=== PATIENT | male | born 2005 | race Hispanic/Latino ===

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

== ENCOUNTER 2024-02-27 01:32 | Emergency (ER) | payer MEDICAID ==
[~2024-02-27] VITALS: Ht 162.6 cm; Wt 72.6 kg
[2024-02-27] MEDS: ONDANSETRON 4MG INJ IVP ONE (02:00)
[2024-02-27] MEDS: LACTATED RINGERS 1000ML 1,000 ML IV ONE (02:00)
[2024-02-27] MEDS: MORPHINE 4 MG SYG IVP ONE (02:00)
[2024-02-27 02:04] LABS: BASOPHILS # (AUTO) 0.04 K/uL (0.00-0.20); BASOPHILS % (AUTO) 0.3 % (0.0-5.0); EOSINOPHILS # (AUTO) 0.32 K/uL (0.00-0.70); EOSINOPHILS % (AUTO) 2.4 % (0.0-8.0); HEMATOCRIT 45.3 % (42-54); IMMATURE GRANULOCYTE ABSOLUTE 0.05 K/uL (0-1); LYMPHOCYTES # (AUTO) 5.1 K/uL (1.0-4.8); LYMPHOCYTES % (AUTO) 38.1 % (21.0-51.0); MEAN CORPUSCULAR HEMOGLOBIN 32.4 pg (27.0-33.0); MEAN CORPUSCULAR HGB CONC 36.6 g/dL (32.0-36.0); MEAN CORPUSCULAR VOLUME 88.5 fL (80-100); MONOCYTES # (AUTO) 0.8 K/uL (0.1-1.0); MONOCYTES % (AUTO) 6.1 % (3.0-13.0); NEUTROPHILS # (AUTO) 7.1 K/uL (1.8-7.7); NEUTROPHILS % (AUTO) 52.7 % (40.0-77.0); PLATELET COUNT (AUTO) 301 K/uL (130-400); RED BLOOD CELL COUNT(AUTO) 5.12 MIL/uL (4.50-6.20); RED CELL DISTRIBUTION WIDTH 12.5 % (11.0-15.5); WHITE BLOOD COUNT (AUTO) 13.5 K/uL (4.8-10.8)
[2024-02-27 02:14] LABS: CREATININE 0.8 mg/dL (0.5-1.3); POTASSIUM 3.7 mmol/L (3.5-5.1)
[2024-02-27 02:19] LABS: BILIRUBIN,TOTAL 0.3 mg/dL (0.2-1.0); TOTAL PROTEIN, SERUM 7.7 g/dL (6.0-8.3)
[2024-02-27] MEDS ORDERED: IOHEXOL-350 75 ML VIAL IV ONE (02:37)
[2024-02-27 03:40] VITALS: BP 139/69; PULSE 78; RESP 16; O2SAT 98
[2024-02-27 03:50] LABS: APPEARANCE,URINE CLEAR (CLEAR); BILIRUBIN,URINE NEGATIVE (NEGATIVE); COLOR,URINE LIGHT-YELLOW (YELLOW); GLUCOSE, URINE (UA) NEGATIVE (NEGATIVE); KETONES,URINE NEGATIVE (NEGATIVE); LEUKOCYTE ESTERASE ,URINE NEGATIVE Leu/uL (NEGATIVE); NITRATE,URINE NEGATIVE (NEGATIVE); OCCULT BLOOD,URINE NEGATIVE (NEGATIVE); PROTEIN,URINE NEGATIVE (NEGATIVE); UROBILINOGEN,URINE 0.2 mg/dL (0.2-1.0)
[2024-02-27 03:51] LABS: ADD UA MICROSCOPIC YES
[2024-02-27 03:52] LABS: BACTERIA,URINE RARE /HPF (None Seen); MUCUS,URINE FEW LPF (None Seen); RBC,URINE 0-1 /HPF (0-1); WBC,URINE 0-1 /HPF (0-1)
[2024-02-27 03:55] LABS: AMPHET/METH SCREEN,URINE NEGATIVE (NEGATIVE); BARBITURATE SCREEN, URINE NEGATIVE (NEGATIVE); BENZODIAZEPINES SCREEN,URINE NEGATIVE (NEGATIVE); CANNABINOID SCREEN,URINE POSITIVE (NEGATIVE); COCAINE SCREEN,URINE NEGATIVE (NEGATIVE); OPIATE SCREEN,URINE POSITIVE (NEGATIVE); PHENCYCLIDINE SCREEN,URINE NEGATIVE (NEGATIVE)
[2024-02-27] MEDS ORDERED: FAMO20TA8 PO (03:58)
== END 2024-02-27 04:16 | disposition home or self-care (01) ==
LOC: EDH 01:32
DX: R10.13 Epigastric pain (principal); F19.10 Other psychoactive substance abuse, uncomplicated; Z98.890 Other specified postprocedural states; Z79.899 Other long term (current) drug therapy
CPT/HCPCS: 99285; 74177; 96374; 71045; 96361; 96375; 82550; 84484; 80053; 80305; 83690; 85025; 36415; 93005; 81001; J7120; J2405; J2270; Q9967; G0378

== ENCOUNTER 2024-05-23 08:12 | Emergency (ER) | payer MEDICAID ==
[~2024-05-23] VITALS: Ht 162.6 cm; Wt 67.1 kg
[~2024-05-23 08:12] MED LIST changes: -CEFAZOLIN SODIUM 1 GM VIAL IVPB SCH; +FAMO20TA8 PO
[2024-05-23 08:39] LABS: BASOPHILS # (AUTO) 0.02 K/uL (0.00-0.20); BASOPHILS % (AUTO) 0.3 % (0.0-5.0); EOSINOPHILS % (AUTO) 5.6 % (0.0-8.0); HEMATOCRIT 41.7 % (42-54); IMMATURE GRANULOCYTE ABSOLUTE 0.01 K/uL (0-1); LYMPHOCYTES # (AUTO) 2.4 K/uL (1.0-4.8); LYMPHOCYTES % (AUTO) 34.3 % (21.0-51.0); MEAN CORPUSCULAR HEMOGLOBIN 31.3 pg (27.0-33.0); MEAN CORPUSCULAR VOLUME 86.9 fL (80-100); MONOCYTES # (AUTO) 0.6 K/uL (0.1-1.0); MONOCYTES % (AUTO) 8.6 % (3.0-13.0); NEUTROPHILS # (AUTO) 3.6 K/uL (1.8-7.7); NEUTROPHILS % (AUTO) 51.1 % (40.0-77.0); PLATELET COUNT (AUTO) 236 K/uL (130-400); RED CELL DISTRIBUTION WIDTH 12.6 % (11.0-15.5); WHITE BLOOD COUNT (AUTO) 7.1 K/uL (4.8-10.8)
[2024-05-23 08:51] LABS: ALBUMIN 4.4 g/dL (3.5-5.0); BILIRUBIN,TOTAL 0.7 mg/dL (0.2-1.0); TOTAL PROTEIN, SERUM 8.2 g/dL (6.0-8.3)
[2024-05-23 08:53] LABS: POTASSIUM 2.6 mmol/L (3.5-5.1)
[2024-05-23] MEDS: NS-20 MEQ KCL 1000ML 1,000 ML IV SCH (09:51)
[2024-05-23 11:18] VITALS: BP 104/50
[2024-05-23 12:49] VITALS: PULSE 68; RESP 13; O2SAT 98
[2024-05-23] MEDS ORDERED: POTA-192 PO (14:29)
== END 2024-05-23 15:21 | disposition home or self-care (01) ==
LOC: EDH 08:12
DX: E87.6 Hypokalemia (principal); R07.89 Other chest pain; F13.10 Sedative, hypnotic or anxiolytic abuse, uncomplicated
CPT/HCPCS: 99285; 96365; 96366; 71045; 83735; 84484; 80053; 85025; 36415; 93005; J3480 ×2

== ENCOUNTER → 2025-08-30 | Emergency (ER) | payer MEDICAID ==
[~2025-08-30] VITALS: Ht 162.6 cm; Wt 78.9 kg
[~2025-08-30] MED LIST changes: +POTA-192 PO
[2025-08-30 21:30] VITALS: BP 135/72; PULSE 105; RESP 20; TEMP 98.7
--- NOTE | 2025-08-30 22:32 | NUR ---
CALLED FOR PT IN [facility]; NO RESPONSE; PT NOT FOUND IN [facility]
== END ==
LOC: EDH 21:28
DX: S61.216A Laceration without foreign body of right little finger without damage to nail, initial encounter (principal); X58.XXXA Exposure to other specified factors, initial encounter; Y93.89 Activity, other specified; Y92.89 Other specified places as the place of occurrence of the external cause; Y99.8 Other external cause status
CPT/HCPCS: 99281